=== PATIENT | male | born 1990 | race African-American/Black ===

== ENCOUNTER 2020-09-19 19:22 | Emergency (ER) | payer OTHER ==
[~2020-09-19] VITALS: Ht 170.2 cm; Wt 79.8 kg
[2020-09-19 20:35] LABS: PLATELET COUNT 111 K/uL (142-355)
[2020-09-19 20:47] LABS: POTASSIUM 3.6 mmol/L (3.6-5.2)
[2020-09-19 21:55] VITALS: BP 130/82; TEMP 100.1
== END 2020-09-19 21:55 | disposition home or self-care (01) ==
LOC: ED 19:22
PROVIDERS: Family Medicine
DX: U07.1 COVID-19 (principal); R05 Cough
CPT/HCPCS: 36415; 80053; 85027; 87502; 87635; 87651; 99283; U0003